=== PATIENT | male | born 1975 | race American Indian/Alaskan Native ===

== ENCOUNTER 2016-11-26 14:10 | Outpatient (CLI) | payer OTHER ==
[2016-11-26 14:47] LABS: Basophils % (Auto) 0.7 % (0.0-1.8); Eosinophils % (Auto) 3.5 % (0.0-4.3); Hematocrit 45.3 % (35.5-45.6); Hemoglobin 14.5 gm/dl (11.8-15.2); Mean Corpuscular HGB Conc 32 % (32-34); Mean Corpuscular Hemoglobin 26 pg (28-32); Mean Corpuscular Volume 82 fl (84-94); Platelet Count 229 K/mm3 (140-440); Red Blood Count 5.51 M/mm3 (3.65-5.03); Red Cell Distribution Width 14.4 % (13.2-15.2); White Blood Count 5.7 K/mm3 (4.5-11.0)
[2016-11-26 15:05] LABS: Alanine Aminotransferase 9 units/L (7-56); Albumin 4.7 g/dL (3.9-5); Albumin/Globulin Ratio 1.3 %; Alkaline Phosphatase 45 units/L (35-129); Anion Gap 19 mmol/L; BUN/Creatinine Ratio 17.77; Blood Urea Nitrogen 16 mg/dL (9-20); Calcium 9.7 mg/dL (8.4-10.2); Carbon Dioxide 27 mmol/L (22-30); Cholesterol 251 mg/dL (50-199); Glucose 94 mg/dL (75-100); HDL Cholesterol 77 mg/dL (40-59); LDL Cholesterol,Direct 164 mg/dL (50-130); Sodium 138 mmol/L (137-145); Total Protein 8.4 g/dL (6.3-8.2); Triglycerides 52 mg/dL (2-149)
[2016-11-26 15:06] LABS: Bilirubin,Direct < 0.2 mg/dL (0-0.2); Bilirubin,Indirect 0.3 mg/dL
--- NOTE | 2016-11-26 17:13 | Cat Scan Report ---
FINAL REPORT PROCEDURE: CT ABDOMEN WO/W CON TECHNIQUE: Computerized axial tomography of the abdomen was performed before and after the IV injection of iodinated nonionic contrast. HISTORY: DIARRHEA COMPARISON: No prior studies are available for comparison. FINDINGS: Unenhanced images reveal a normal sized heart. There is a 2 millimeter stone in the superior pole of the left kidney. No right renal stones are seen. Visualized portions of the ureters display no stones and no hydronephrosis is seen. Contrast-enhanced images reveal normal renal enhancement. 5 millimeter cyst is seen in the posterior aspect of the right hepatic lobe. The gallbladder and pancreas appear normal. The adrenal glands and abdominal aorta are normal in size. There is likely moderate right-sided constipation. No evidence of small bowel obstruction is seen with GI contrast reaching the right side of the colon. Jejunum is not well-distended and wall thickening cannot be excluded in the jejunum. No evidence of colitis is seen in the visualized portions of the colon. Pelvis is not included on this study. Appendix is not seen but no pericecal inflammation is seen. IMPRESSION: Nonobstructing 2 millimeter stone is seen in the left kidney. Moderate right-sided constipation is suspected. No evidence of bowel obstruction is seen. Changes of jejunitis cannot be excluded but appearance could be due to nondistention of the jejunum.
== END 2016-11-26 14:11 | disposition home or self-care (01) ==
LOC: CT 14:10
DX: N20.0 Calculus of kidney (principal); R19.7 Diarrhea, unspecified; K76.89 Other specified diseases of liver
CPT/HCPCS: 36415; 74170; 80053; 80061; 80074; 84439; 84443; 85025; Q9967

== ENCOUNTER 2020-01-05 09:12 | Emergency (ER) | payer SELFPAY ==
[2020-01-05 09:24] VITALS: BP 133/94
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
== END 2020-01-05 10:30 | disposition left against medical advice (07) ==
LOC: ED 09:12
DX: Z53.21 Procedure and treatment not carried out due to patient leaving prior to being seen by health care provider (principal)

== ENCOUNTER 2020-08-29 17:57 | Emergency (ER) | payer OTHER ==
[2020-08-29 18:05] VITALS: BP 134/101
--- NOTE | 2020-08-29 20:31 | Emergency Department Report ---
ED General Adult HPI - General Chief complaint: Rectal Pain Stated complaint: HEMORRHOIDS Source: patient Mode of arrival: Ambulatory Limitations: No Limitations - History of Present Illness Initial comments: Patient is a 45-year-old -[place] male with past medical history of chronic recurrent external hemorrhoids who presents to the ED with complaint of acute exacerbation of his chronic hemorrhoid and rectal pain for the last 2 weeks, worse in the last 2 days. Patient also complains of intermittent occasional bleeding with pain, the last time which was 3 days ago. Patient states that the pain is worse with bowel movement. Patient states that he has previously been treated for the same in the ED and was given a prescription that helped him well and would like the same medication be prescribed for him. Patient denies traumatic injury, hematochezia, nausea, vomiting, abdominal pain, fever, chills, testicular pain, dysuria, urinary frequency and urgency, low back pain, chest pain or shortness of breath. MD Complaint: Rectal pain; external hemorrhoids -: Sudden, week(s) (2) Location: buttocks Radiation: non-radiation Severity scale (0 -10): 4 Quality: aching, sharp Consistency: constant Improves with: none Worsens with: movement, other (bowel movement) Associated Symptoms: denies other symptoms. denies: confusion, chest pain, cough, diaphoresis, fever/chills, headaches, loss of appetite, malaise, nausea/vomiting, rash, seizure, shortness of breath, syncope, weakness, other Treatments Prior to Arrival: none - Related Data Previous Rx's Medication Instructions Recorded Last Taken Type Gentamicin 0.3% Ophth Soln 1 drops OP Q4H #1 bottle 04/12/15 Unknown Rx Acetaminophen/Codeine [Tylenol 1 tab PO Q6H PRN #12 tab 03/03/19 Unknown Rx /Codeine # 3 tab] Sulfamethoxazole/Trimethoprim 1 each PO BID #14 tablet 03/03/19 Unknown Rx [Bactrim DS TAB] Docusate Sodium [Colace CAP] 100 mg PO BID PRN #60 capsule 08/29/20 Unknown Rx Hydrocortisone [Anusol-Hc 2.5% TOP 1 applic RC Q12H PRN #1 tube 08/29/20 Unknown Rx CREAM] Lidocaine [Lidocaine GEL] 1 gm TP BID #1 gel..gram. 08/29/20 Unknown Rx Allergies Allergy/AdvReac Type Severity Reaction Status Date / Time No Known Allergies Allergy Verified 08/29/20 17:59 ED Review of Systems ROS: Stated complaint: HEMORRHOIDS Other details as noted in HPI Constitutional: denies: chills, fever Eyes: denies: eye pain, eye discharge, vision change ENT: denies: ear pain, throat pain Respiratory: denies: cough, shortness of breath, wheezing Cardiovascular: denies: chest pain, palpitations Endocrine: no symptoms reported Gastrointestinal: other (rectal pain due to external hemorrhoids). denies: abdominal pain, nausea, diarrhea Genitourinary: denies: urgency, dysuria Musculoskeletal: denies: back pain, joint swelling, arthralgia Skin: denies: rash, lesions Neurological: denies: headache, weakness, paresthesias Psychiatric: denies: anxiety, depression Hematological/Lymphatic: denies: easy bleeding, easy bruising ED Past Medical Hx - Past Medical History Previous Medical History?: No Additional medical history: hemorrhoids - Surgical History Past Surgical History?: No - Social History Smoking Status: Never Smoker Substance Use Type: None - Medications Home Medications: Home Medications Medication Instructions Recorded Confirmed Last Taken Type Gentamicin 0.3% Ophth Soln 1 drops OP Q4H #1 bottle 04/12/15 Unknown Rx Acetaminophen/Codeine [Tylenol 1 tab PO Q6H PRN #12 tab 03/03/19 Unknown Rx /Codeine # 3 tab] Sulfamethoxazole/Trimethoprim 1 each PO BID #14 tablet 03/03/19 Unknown Rx [Bactrim DS TAB] Docusate Sodium [Colace CAP] 100 mg PO BID PRN #60 capsule 08/29/20 Unknown Rx Hydrocortisone [Anusol-Hc 2.5% TOP 1 applic RC Q12H PRN #1 tube 08/29/20 Unknown Rx CREAM] Lidocaine [Lidocaine GEL] 1 gm TP BID #1 gel..gram. 08/29/20 Unknown Rx ED Physical Exam - General Limitations: No Limitations General appearance: alert, in no apparent distress - Head Head exam: Present: atraumatic, normocephalic, normal inspection - Eye Eye exam: Present: normal appearance, PERRL, EOMI Pupils: Present: normal accommodation - ENT ENT exam: Present: normal exam, normal orophraynx, mucous membranes moist, TM's normal bilaterally, normal external ear exam - Neck Neck exam: Present: normal inspection, full ROM - Respiratory Respiratory exam: Present: normal lung sounds bilaterally. Absent: respiratory distress, wheezes, rhonchi, stridor, chest wall tenderness, accessory muscle use, prolonged expiratory - Cardiovascular Cardiovascular Exam: Present: regular rate, normal rhythm, normal heart sounds. Absent: systolic murmur, diastolic murmur, rubs, gallop - GI/Abdominal GI/Abdominal exam: Present: soft, normal bowel sounds. Absent: tenderness, guarding, rebound, hyperactive bowel sounds, hypoactive bowel sounds - Rectal Rectal exam: Present: hemorrhoids (external tender ), tenderness, other (Male RN anesthesiologist attending Mr. Guajardo present) - Extremities Exam Extremities exam: Present: normal inspection, full ROM, normal capillary refill - Back Exam Back exam: Present: normal inspection, full ROM. Absent: tenderness, CVA tenderness (R), CVA tenderness (L), muscle spasm, paraspinal tenderness, vertebral tenderness - Neurological Exam Neurological exam: Present: alert, oriented X3, CN II-XII intact, normal gait, reflexes normal - Psychiatric Psychiatric exam: Present: normal affect, normal mood, anxious - Skin Skin exam: Present: warm, dry, intact, normal color. Absent: rash ED Course Vital Signs 08/29/20 17:59 Temperature 98.2 F Pulse Rate 85 Respiratory 18 Rate Blood Pressure 134/101 O2 Sat by Pulse 97 Oximetry ED Medical Decision Making - Medical Decision Making This is a 45-year-old -[place] male with past medical history of chronic recurrent external hemorrhoids who presents to the ED with complaint of acute exacerbation of his chronic hemorrhoid and rectal pain for the last 2 weeks, worse in the last 2 days. Patient also complains of intermittent occasional bleeding with pain, the last time which was 3 days ago. Patient states that the pain is worse with bowel movement. In the ED, patient is alert and oriented x3 and is not in any distress. Based on the history and physical exam findings, the patient was given a prescription for topical ointment for external hemorrhoids and was also encouraged to use sitz baths to improve on his symptoms. Patient was also encouraged to increase high-fiber intake and drink plenty of water in order to improve on constipation. Patient was advised return to the ED immediately if symptoms get worse, otherwise follow-up with his primary care physician in 5 to 7 days for reevaluation. - Differential Diagnosis External hemorrhoids, internal hemorrhoids, constipation, anal fissures Critical care attestation.: If time is entered above; I have spent that time in minutes in the direct care of this critically ill patient, excluding procedure time. ED Disposition Clinical Impression: External hemorrhoids, Anal or rectal pain Disposition: TO HOME OR SELFCARE Is pt being admited?: No Does the pt Need Aspirin: No Condition: Stable Instructions: Surgical Procedures for Hemorrhoids, Hemorrhoids, [id number], N onsurgical Procedures for Hemorrhoids Additional Instructions: Take medications with food, drink plenty of fluids and follow-up with your primary care physician in 5 to 7 days for reevaluation. Increase your fiber intake to improve on your symptoms. Return to the ED immediately if symptoms get worse. Prescriptions: Hydrocortisone [Anusol-Hc 2.5% TOP CREAM] 1 applic RC Q12H PRN #1 tube PRN Reason: Hemorrhoids Docusate Sodium [Colace CAP] 100 mg PO BID PRN #60 capsule PRN Reason: Constipation Lidocaine [Lidocaine GEL] 1 gm TP BID #1 gel..gram. Referrals: AGNES PANDYA MD [Referring] - 3-5 Days Time of Disposition: 20:31 Print Language: CZECH
== END 2020-08-29 21:00 | disposition home or self-care (01) ==
LOC: ED 17:57
DX: K64.4 Residual hemorrhoidal skin tags (principal); R10.2 Pelvic and perineal pain; Z79.899 Other long term (current) drug therapy
CPT/HCPCS: 99282

== ENCOUNTER 2021-07-13 01:36 | Emergency (ER) | payer OTHER ==
[2021-07-13] MEDS ORDERED: HEPARIN 10,000 UNITS/10 ML VIAL IV PRN (02:06)
[2021-07-13] MEDS ORDERED: SODIUM CHLORIDE 0.9% 1000 ML 1,000 ML IV ONE (02:06)
[2021-07-13 02:43] LABS: Hematocrit 42.3 % (35.5-45.6); Hemoglobin 13.2 gm/dl (11.8-15.2); Mean Corpuscular HGB Conc 31 % (32-34); Mean Corpuscular Volume 84 fl (84-94); Platelet Count 222 K/mm3 (140-440); Red Blood Count 5.05 M/mm3 (3.65-5.03); Red Cell Distribution Width 15.2 % (13.2-15.2)
[2021-07-13 03:08] LABS: Alanine Aminotransferase 13 units/L (7-56); Albumin 4.2 g/dL (3.9-5); BUN/Creatinine Ratio 21; Blood Urea Nitrogen 19 mg/dL (9-20); Calcium 8.7 mg/dL (8.4-10.2); Creatine Kinase MB 3.9 ng/mL (0.0-4.0); Hemolysis Index 3
[2021-07-13 03:50] LABS: Basophils % (Manual) 0 % (0.0-1.8); Total Cells Counted 100
[2021-07-13 03:56] LABS: RBC Morphology Normal
[2021-07-13 03:57] LABS: Platelet Estimate Consistent w Auto
--- NOTE | 2021-07-13 04:30 | Emergency Department Report ---
ED Palpitations HPI - General Chief Complaint: Arrhythmia/Palpitations Stated Complaint: IRREGULAR HEART BEAT WITH COUGH Time Seen by Provider: 07/13/21 01:56 Source: patient Mode of arrival: Ambulatory Limitations: No Limitations - History of Present Illness MD Complaint: rapid heart beat, palpitations -: Gradual, days(s) Context: occured during rest Associated Symptoms: denies other symptoms - Related Data Previous Rx's Medication Instructions Recorded Last Taken Type Gentamicin 0.3% Ophth Soln 1 drops OP Q4H #1 bottle 04/12/15 Unknown Rx Acetaminophen/Codeine [Tylenol 1 tab PO Q6H PRN #12 tab 03/03/19 Unknown Rx /Codeine # 3 tab] Sulfamethoxazole/Trimethoprim 1 each PO BID #14 tablet 03/03/19 Unknown Rx [Bactrim DS TAB] Docusate Sodium [Colace CAP] 100 mg PO BID PRN #60 capsule 08/29/20 Unknown Rx Hydrocortisone [Anusol-Hc 2.5% TOP 1 applic RC Q12H PRN #1 tube 08/29/20 Unknown Rx CREAM] Lidocaine [Lidocaine GEL] 1 gm TP BID #1 gel..gram. 08/29/20 Unknown Rx Allergies Allergy/AdvReac Type Severity Reaction Status Date / Time No Known Allergies Allergy Verified 08/29/20 17:59 ED Review of Systems ROS: Stated complaint: IRREGULAR HEART BEAT WITH COUGH Other details as noted in HPI Constitutional: denies: chills, fever Eyes: denies: eye pain, eye discharge, vision change ENT: denies: ear pain, throat pain Respiratory: denies: cough, shortness of breath, wheezing Cardiovascular: denies: chest pain, palpitations Endocrine: no symptoms reported Gastrointestinal: denies: abdominal pain, nausea, diarrhea Genitourinary: denies: urgency, dysuria Musculoskeletal: denies: back pain, joint swelling, arthralgia Skin: denies: rash, lesions Neurological: denies: headache, weakness, paresthesias Psychiatric: denies: anxiety, depression Hematological/Lymphatic: denies: easy bleeding, easy bruising ED Past Medical Hx - Past Medical History Previous Medical History?: No Additional medical history: hemorrhoids - Surgical History Past Surgical History?: No - Social History Smoking Status: Never Smoker Substance Use Type: None - Medications Home Medications: Home Medications Medication Instructions Recorded Confirmed Last Taken Type Gentamicin 0.3% Ophth Soln 1 drops OP Q4H #1 bottle 04/12/15 Unknown Rx Acetaminophen/Codeine [Tylenol 1 tab PO Q6H PRN #12 tab 03/03/19 Unknown Rx /Codeine # 3 tab] Sulfamethoxazole/Trimethoprim 1 each PO BID #14 tablet 03/03/19 Unknown Rx [Bactrim DS TAB] Docusate Sodium [Colace CAP] 100 mg PO BID PRN #60 capsule 08/29/20 Unknown Rx Hydrocortisone [Anusol-Hc 2.5% TOP 1 applic RC Q12H PRN #1 tube 08/29/20 Unknown Rx CREAM] Lidocaine [Lidocaine GEL] 1 gm TP BID #1 gel..gram. 08/29/20 Unknown Rx ED Physical Exam - General Limitations: No Limitations General appearance: alert, in no apparent distress - Head Head exam: Present: atraumatic, normocephalic - Eye Eye exam: Present: normal appearance - ENT ENT exam: Present: mucous membranes moist - Neck Neck exam: Present: normal inspection - Respiratory Respiratory exam: Present: normal lung sounds bilaterally. Absent: respiratory distress - Cardiovascular Cardiovascular Exam: Present: regular rate, normal rhythm. Absent: systolic murmur, diastolic murmur, rubs, gallop - GI/Abdominal GI/Abdominal exam: Present: soft, normal bowel sounds - Rectal Rectal exam: Present: deferred - Extremities Exam Extremities exam: Present: normal inspection - Back Exam Back exam: Present: normal inspection - Neurological Exam Neurological exam: Present: alert, oriented X3 - Psychiatric Psychiatric exam: Present: normal affect, normal mood - Skin Skin exam: Present: warm, dry, intact, normal color. Absent: rash ED Course - Reevaluation(s) Reevaluation #1: 07/13/21 04:29 work up negative , vss , no distress ekg normal ED Medical Decision Making - Lab Data Result diagrams: 07/13/21 02:31 07/13/21 02:31 - EKG Data -: EKG Interpreted by Me EKG shows normal: sinus rhythm Rate: normal - EKG Data When compared to previous EKG there are: no significant change Interpretation: no acute changes Critical care attestation.: If time is entered above; I have spent that time in minutes in the direct care of this critically ill patient, excluding procedure time. ED Disposition Clinical Impression: Palpitation Disposition: 01 HOME / SELF CARE / HOMELESS Is pt being admited?: No Does the pt Need Aspirin: No Condition: Stable Instructions: Palpitations, [id number] Referrals: CHAPITO GREGORY MD [Staff Physician] - 3-5 Days
--- NOTE | 2021-07-14 14:29 | Electrocardiograph Report ---
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
--- NOTE | 2021-07-17 10:01 | XRay Report ---
CHEST 2 VIEW INDICATION / CLINICAL INFORMATION: Dysrhythmia. COMPARISON: None available. FINDINGS: SUPPORT DEVICES: None. HEART / MEDIASTINUM: No significant abnormality. LUNGS / PLEURA: Mild hyperinflation of the lungs. Lungs otherwise clear. No pneumothorax. ADDITIONAL FINDINGS: No significant additional findings. IMPRESSION: 1. No active cardiopulmonary disease. Signer Name: Lenny Butler II, MD Signed: 07/13/2021 1:31 AM Workstation Name: [id number]
== END 2021-07-13 07:00 | disposition home or self-care (01) ==
LOC: ED 01:36
DX: R00.2 Palpitations (principal); Z79.899 Other long term (current) drug therapy; R79.1 Abnormal coagulation profile
CPT/HCPCS: 36415; 71045; 80053; 82550; 82553; 84443; 84484; 85007; 85025; 85610; 93005; 93010; 96360; 99284; J7030; 71046; Q0162

== ENCOUNTER 2021-08-20 16:34 | Emergency (ER) | payer OTHER ==
[2021-08-20 16:50] VITALS: BP 140/82
--- NOTE | 2021-08-20 20:44 | Emergency Department Report ---
ED Dizziness HPI - General Chief Complaint: Dizziness Stated Complaint: DIZZY Source: patient Mode of arrival: Ambulatory Limitations: No Limitations - History of Present Illness Initial Comments: 46-year-old male presents to the ED complaining of dizziness and earaches x2- week. Patient is alert and oriented x3. Patient states that symptoms are worse when he is bending and coming up. Patient has taken any [id number] medication. Patient states that he feels like he has fluid in the back of his ear. Patient denies any headache nausea vomiting or diarrhea. No acute distress noted. No ill appearance noted. MD Complaint: dizziness History of Same: No History of Trauma: No Worsens With: nothing Associated Symptoms: denies other symptoms - Related Data Previous Rx's Medication Instructions Recorded Last Taken Type Gentamicin 0.3% Ophth Soln 1 drops OP Q4H #1 bottle 04/12/15 Unknown Rx Acetaminophen/Codeine [Tylenol 1 tab PO Q6H PRN #12 tab 03/03/19 Unknown Rx /Codeine # 3 tab] Sulfamethoxazole/Trimethoprim 1 each PO BID #14 tablet 03/03/19 Unknown Rx [Bactrim DS TAB] Docusate Sodium [Colace CAP] 100 mg PO BID PRN #60 capsule 08/29/20 Unknown Rx Hydrocortisone [Anusol-Hc 2.5% TOP 1 applic RC Q12H PRN #1 tube 08/29/20 Unknown Rx CREAM] Lidocaine [Lidocaine GEL] 1 gm TP BID #1 gel..gram. 08/29/20 Unknown Rx Amoxicillin/Potassium Clav 1 each PO BID 10 Days #20 tab 08/20/21 Unknown Rx [Augmentin 875-125 Tablet] Cetirizine HCl/Pseudoephedrine 1 each PO BID 15 Days #30 tab 08/20/21 Unknown Rx [Zyrtec-D Tablet] predniSONE [Deltasone] 50 mg PO QDAY 3 Days #3 tab 08/20/21 Unknown Rx Allergies Allergy/AdvReac Type Severity Reaction Status Date / Time No Known Allergies Allergy Verified 08/29/20 17:59 ED Review of Systems ROS: Stated complaint: DIZZY Other details as noted in HPI Constitutional: denies: chills, fever Eyes: denies: eye pain, eye discharge, vision change ENT: denies: ear pain, throat pain Respiratory: denies: cough, shortness of breath, wheezing Cardiovascular: denies: chest pain, palpitations Endocrine: no symptoms reported Gastrointestinal: denies: abdominal pain, nausea, diarrhea Genitourinary: denies: urgency, dysuria Musculoskeletal: denies: back pain, joint swelling, arthralgia Skin: denies: rash, lesions Neurological: denies: headache, weakness, paresthesias Psychiatric: denies: anxiety, depression Hematological/Lymphatic: denies: easy bleeding, easy bruising ED Past Medical Hx - Past Medical History Additional medical history: hemorrhoids - Social History Smoking Status: Never Smoker Substance Use Type: None - Medications Home Medications: Home Medications Medication Instructions Recorded Confirmed Last Taken Type Gentamicin 0.3% Ophth Soln 1 drops OP Q4H #1 bottle 04/12/15 Unknown Rx Acetaminophen/Codeine [Tylenol 1 tab PO Q6H PRN #12 tab 03/03/19 Unknown Rx /Codeine # 3 tab] Sulfamethoxazole/Trimethoprim 1 each PO BID #14 tablet 03/03/19 Unknown Rx [Bactrim DS TAB] Docusate Sodium [Colace CAP] 100 mg PO BID PRN #60 capsule 08/29/20 Unknown Rx Hydrocortisone [Anusol-Hc 2.5% TOP 1 applic RC Q12H PRN #1 tube 08/29/20 Unknown Rx CREAM] Lidocaine [Lidocaine GEL] 1 gm TP BID #1 gel..gram. 08/29/20 Unknown Rx Amoxicillin/Potassium Clav 1 each PO BID 10 Days #20 tab 08/20/21 Unknown Rx [Augmentin 875-125 Tablet] Cetirizine HCl/Pseudoephedrine 1 each PO BID 15 Days #30 tab 08/20/21 Unknown Rx [Zyrtec-D Tablet] predniSONE [Deltasone] 50 mg PO QDAY 3 Days #3 tab 08/20/21 Unknown Rx ED Physical Exam - General Limitations: No Limitations ED Course Vital Signs 08/20/21 16:47 Temperature 97.9 F Pulse Rate 98 H Respiratory 16 Rate Blood Pressure 140/82 [Left] O2 Sat by Pulse 99 Oximetry ED Medical Decision Making - Medical Decision Making 46-year-old male presents to the ED complaining of dizziness and earaches x2- week. Patient is alert and oriented x3. Patient states that symptoms are worse when he is bending and coming up. Patient has taken any [id number] medication. Patient states that he feels like he has fluid in the back of his ear. Patient denies any headache nausea vomiting or diarrhea. No acute distress noted. No ill appearance noted. Physical examination patient has tenderness to the front of her cavities upon palpation. Post Nasal drip noted. Mild ear effusion noted to the right ear. Rechecked the patient is resting quietly quietly and comfortable and feeling better. I discussed the results of diagnostic study, my clinical impression and the plan for further treatment with the patient. Patient agrees with plan and discharge at this present time. All question addressed. I have given the patient instruction regarding a diagnosis ,expectation ,follow- up and return precaution. I explained to the patient that emergent condition may arise and to return to the ED for new worsen and any new persisting condition. I have explained the importance of following up with the primary care physician or referral physician listed below has instructed. The patient verbalized understanding of discharge instruction. Critical care attestation.: If time is entered above; I have spent that time in minutes in the direct care of this critically ill patient, excluding procedure time. ED Disposition Clinical Impression: Acute frontal sinusitis Qualifiers: Recurrence: non-recurrent Qualified Code(s): J01.10 - Acute frontal sinusitis, unspecified Disposition: 01 HOME / SELF CARE / HOMELESS Is pt being admited?: No Does the pt Need Aspirin: No Condition: Stable Instructions: Sinusitis, Adult, [id number] Additional Instructions: Take medication has needed Return to the ED for any worsening symptom Prescriptions: Amoxicillin/Potassium Clav [Augmentin 875-125 Tablet] 1 each PO BID 10 Days #20 tab predniSONE [Deltasone] 50 mg PO QDAY 3 Days #3 tab Cetirizine HCl/Pseudoephedrine [Zyrtec-D Tablet] 1 each PO BID 15 Days #30 tab Referrals: BELA GARCIA MD [Primary Care Provider] - 3-5 Days Forms: Work/School Release Form(ED)
== END 2021-08-20 22:53 | disposition home or self-care (01) ==
LOC: ED 16:34
DX: J01.10 Acute frontal sinusitis, unspecified (principal)
CPT/HCPCS: 99282

== ENCOUNTER 2021-12-11 08:48 | Emergency (ER) | payer OTHER ==
[2021-12-11] MEDS ORDERED: FAMOTIDINE 20 MG TAB PO ONE (09:41)
[2021-12-11] MEDS ORDERED: ALUM-MAG HYDROXIDE-SIMETHICONE 200-200-20MG/5ML ORAL LIQD 30 ML PO ONE (09:41)
[2021-12-11] MEDS ORDERED: LIDOCAINE VISCOUS 2% 15 ML ORAL LIQD PO ONE (09:41)
[2021-12-11] MEDS ORDERED: ONDANSETRON 4 MG ODT TAB PO ONE (09:47)
[2021-12-11] MEDS ORDERED: SODIUM CHLORIDE 0.9% 1000 ML 1,000 ML IV ONE (10:03)
[2021-12-11] MEDS ORDERED: ONDANSETRON 4 MG/2 ML INJ IV ONE ×2 (10:03→16:37)
[2021-12-11] MEDS ORDERED: diphenhydrAMINE 50 MG/ML VIAL IV ONE (10:37)
[2021-12-11] MEDS ORDERED: MORPHINE 4 MG/1 ML INJ IV ONE (10:37)
[2021-12-11] MEDS ORDERED: METOCLOPRAMIDE 10 MG/2 ML INJ IV ONE (10:37)
--- NOTE | 2021-12-11 10:44 | Emergency Department Report ---
ED Abdominal Pain HPI - General Chief Complaint: Abdominal Pain Stated Complaint: STOMACH AND BACK PAIN/CAN'T BREATHE Time Seen by Provider: 12/11/21 09:40 Source: patient Mode of arrival: Ambulatory Limitations: No Limitations - History of Present Illness Initial Comments: Patient is a 46-year-old -[place] male with no past medical history who presents to the ED with complaint of acute onset persistent diffuse lower abdominal pain that radiates from the lower abdomen to the left flank with intractable nausea and vomiting for the last 6 hours. Patient states that he has not been able to keep anything down because of persistent intractable nausea and vomiting and worsening diffuse lower abdominal pain. Patient states that no one else at home is had similar symptoms. Patient denies fever, chills, dizziness, syncope, hematochezia, hematemesis, diarrhea, dysuria, urinary frequency and urgency, testicular pain, hematuria, headache, sore throat, cough, chest pain and shortness of breath. MD Complaint: abdominal pain (Diffuse lower abdominal pain), other (Intractable nausea and vomiting) -: hour(s) (6) Location: LLQ, RLQ, suprapubic, L flank Radiation: LLQ, RLQ, suprapubic, L flank Migration to: no migration Severity: severe Severity scale (0 -10): 10 Quality: cramping, sharp Consistency: constant Improves With: nothing Worsens With: nothing Associated Symptoms: denies other symptoms, nausea, vomiting. denies: diarrhea, chills, constipation, dysuria, hematemesis, hematochezia, melena, hematuria, anorexia - Related Data Previous Rx's Medication Instructions Recorded Last Taken Type Gentamicin 0.3% Ophth Soln 1 drops OP Q4H #1 bottle 04/12/15 Unknown Rx Acetaminophen/Codeine [Tylenol 1 tab PO Q6H PRN #12 tab 03/03/19 Unknown Rx /Codeine # 3 tab] Sulfamethoxazole/Trimethoprim 1 each PO BID #14 tablet 03/03/19 Unknown Rx [Bactrim DS TAB] Docusate Sodium [Colace CAP] 100 mg PO BID PRN #60 capsule 08/29/20 Unknown Rx Hydrocortisone [Anusol-Hc 2.5% TOP 1 applic RC Q12H PRN #1 tube 08/29/20 Unknown Rx CREAM] Lidocaine [Lidocaine GEL] 1 gm TP BID #1 gel..gram. 08/29/20 Unknown Rx Amoxicillin/Potassium Clav 1 each PO BID 10 Days #20 tab 08/20/21 Unknown Rx [Augmentin 875-125 Tablet] Cetirizine HCl/Pseudoephedrine 1 each PO BID 15 Days #30 tab 08/20/21 Unknown Rx [Zyrtec-D Tablet] predniSONE [Deltasone] 50 mg PO QDAY 3 Days #3 tab 08/20/21 Unknown Rx Ciprofloxacin HCl 500 mg PO Q12H #20 tab 12/11/21 Unknown Rx Ketorolac [Toradol] 10 mg PO Q8H PRN #20 tab 12/11/21 Unknown Rx Ondansetron [Zofran Odt] 4 mg PO Q8HR PRN #20 tab.rapdis 12/11/21 Unknown Rx Tamsulosin [Flomax] 0.4 mg PO QDAY #10 cap 12/11/21 Unknown Rx traMADoL [Ultram] 50 mg PO Q6HR PRN #10 tablet 12/11/21 Unknown Rx Allergies Allergy/AdvReac Type Severity Reaction Status Date / Time No Known Allergies Allergy Verified 08/29/20 17:59 ED Review of Systems ROS: Stated complaint: STOMACH AND BACK PAIN/CAN'T BREATHE Other details as noted in HPI Constitutional: denies: chills, fever Eyes: denies: eye pain, eye discharge, vision change ENT: denies: ear pain, throat pain Respiratory: denies: cough, shortness of breath, wheezing Cardiovascular: denies: chest pain, palpitations Endocrine: no symptoms reported Gastrointestinal: abdominal pain (Diffuse lower abdominal pain), nausea, vomiting. denies: diarrhea Genitourinary: denies: urgency, dysuria Musculoskeletal: denies: back pain, joint swelling, arthralgia Skin: denies: rash, lesions Neurological: denies: headache, weakness, paresthesias Psychiatric: denies: anxiety, depression Hematological/Lymphatic: denies: easy bleeding, easy bruising ED Past Medical Hx - Past Medical History Previous Medical History?: No Additional medical history: hemorrhoids - Social History Smoking Status: Never Smoker - Medications Home Medications: Home Medications Medication Instructions Recorded Confirmed Last Taken Type Gentamicin 0.3% Ophth Soln 1 drops OP Q4H #1 bottle 04/12/15 Unknown Rx Acetaminophen/Codeine [Tylenol 1 tab PO Q6H PRN #12 tab 03/03/19 Unknown Rx /Codeine # 3 tab] Sulfamethoxazole/Trimethoprim 1 each PO BID #14 tablet 03/03/19 Unknown Rx [Bactrim DS TAB] Docusate Sodium [Colace CAP] 100 mg PO BID PRN #60 capsule 08/29/20 Unknown Rx Hydrocortisone [Anusol-Hc 2.5% TOP 1 applic RC Q12H PRN #1 tube 08/29/20 Unknown Rx CREAM] Lidocaine [Lidocaine GEL] 1 gm TP BID #1 gel..gram. 08/29/20 Unknown Rx Amoxicillin/Potassium Clav 1 each PO BID 10 Days #20 tab 08/20/21 Unknown Rx [Augmentin 875-125 Tablet] Cetirizine HCl/Pseudoephedrine 1 each PO BID 15 Days #30 tab 08/20/21 Unknown Rx [Zyrtec-D Tablet] predniSONE [Deltasone] 50 mg PO QDAY 3 Days #3 tab 08/20/21 Unknown Rx Ciprofloxacin HCl 500 mg PO Q12H #20 tab 12/11/21 Unknown Rx Ketorolac [Toradol] 10 mg PO Q8H PRN #20 tab 12/11/21 Unknown Rx Ondansetron [Zofran Odt] 4 mg PO Q8HR PRN #20 tab.rapdis 12/11/21 Unknown Rx Tamsulosin [Flomax] 0.4 mg PO QDAY #10 cap 12/11/21 Unknown Rx traMADoL [Ultram] 50 mg PO Q6HR PRN #10 tablet 12/11/21 Unknown Rx ED Physical Exam - General Limitations: No Limitations General appearance: alert, in no apparent distress - Head Head exam: Present: atraumatic, normocephalic, normal inspection - Eye Eye exam: Present: normal appearance, PERRL, EOMI Pupils: Present: normal accommodation - ENT ENT exam: Present: normal exam, normal orophraynx, mucous membranes moist, TM's normal bilaterally, normal external ear exam - Neck Neck exam: Present: normal inspection, full ROM - Respiratory Respiratory exam: Present: normal lung sounds bilaterally. Absent: respiratory distress, wheezes, rales, rhonchi, chest wall tenderness, accessory muscle use, decreased breath sounds, prolonged expiratory - Cardiovascular Cardiovascular Exam: Present: regular rate, normal rhythm, normal heart sounds. Absent: systolic murmur, diastolic murmur, rubs, gallop - GI/Abdominal GI/Abdominal exam: Present: soft, tenderness (Palpable diffuse lower abdominal tenderness, with guarding), guarding, normal bowel sounds. Absent: rebound, hyperactive bowel sounds, hypoactive bowel sounds, mass - Extremities Exam Extremities exam: Present: normal inspection, full ROM, normal capillary refill - Back Exam Back exam: Present: normal inspection, full ROM. Absent: tenderness, CVA tenderness (R), CVA tenderness (L), muscle spasm, paraspinal tenderness - Neurological Exam Neurological exam: Present: alert, oriented X3, CN II-XII intact, normal gait, reflexes normal - Psychiatric Psychiatric exam: Present: normal affect, normal mood - Skin Skin exam: Present: warm, dry, intact, normal color. Absent: rash ED Course Vital Signs 12/11/21 12/11/21 09:42 13:33 Temperature 97.8 F 98.0 F Pulse Rate 90 76 Respiratory 20 18 Rate Blood Pressure 152/92 97/53 [Left] O2 Sat by Pulse 100 97 Oximetry ED Medical Decision Making - Lab Data Result diagrams: 12/11/21 09:52 12/11/21 09:52 - Radiology Data Radiology results: report reviewed, [place] [address] Cat Scan Report Signed Patient: FORREST DAILEY MR#: [id number] : 1975 Acct:[id number] Age/Sex: 46 / M ADM Date: 12/11/21 Loc: ED Attending Dr: Ordering Physician: RIA OLIVER Date of Service: 12/11/21 Procedure(s): CT abdomen pelvis w con Accession Number(s): [id number] cc: RIA OLIVER CT ABDOMEN AND PELVIS WITH CONTRAST HISTORY: DIFFUSE LOWER ABDOMINAL PAIN - R/O APPENDICITIS COMPARISON: None. TECHNIQUE: Axial CT images were obtained through the abdomen and pelvis after 100 cc of Omnipaque 300 IV contrast. Sagittal and coronal reformatted images. All CT scans at this location are performed using CT dose reduction for ALARA by means of automated exposure control. FINDINGS: CT ABDOMEN: Lung Bases: Mild bibasilar atelectatic changes. Liver: No significant abnormality. Biliary: No significant abnormality. Spleen: No significant abnormality. Unenlarged. Pancreas: No significant abnormality. Adrenals: No significant abnormality. Kidneys: The right kidney and collecting system are unremarkable. There is mild left perinephric fluid/stranding. No focal left renal lesion. No obvious renal stones. The left ureter is slightly prominent compared to the right side but no obstructing lesion is seen. Lymphatics: No lymphadenopathy. Vasculature: No significant abnormality. Bowel/Peritoneum: No significant abnormality. No free air. No free fluid. Normal appendix. CT PELVIS: : A 6 mm stone is identified in the bladder. The bladder is otherwise unremarkable. Osseous Structures: No significant abnormality. Additional Findings: None IMPRESSION: Findings consistent with a recently passed 6 mm left renal stone. See above. No evidence for appendicitis. Signer Name: Wayne Guadalupe Jr, MD Signed: 12/11/2021 2:49 PM Workstation Name: [id number] Transcribed By: TTR Dictated By: WAYNE GUADALUPE JR, MD Electronically Authenticated By: WAYNE GUADALUPE JR, MD Signed Date/Time: 12/11/211448 DD/ 45 TD/TT: Print - Medical Decision Making This is a 46-year-old -[place] male with no past medical history who presents to the ED with complaint of acute onset persistent diffuse lower abdominal pain that radiates from the lower abdomen to the left flank with intractable nausea and vomiting for the last 6 hours. Patient states that he has not been able to keep anything down because of persistent intractable nausea and vomiting and worsening diffuse lower abdominal pain. Patient states that no one else at home is had similar symptoms. In the ED, patient is alert and oriented x3 and is not in any distress but appears to be in significant pain. Labs are drawn, abdomen pelvis CT scan with IV contrast ordered and patient was treated for pain, also given antiemetics and normal saline 1 L IV bolus x1. The abdomen pelvis CT scan with IV contrast showed findings consistent with a recently passed 6 mm left renal stone, with a 6 mm stone still present in the bladder. All lab test results were reviewed and are all nonactionable except for urinalysis that showed significant blood in urine consistent with the findings of kidney stones in the abdomen pelvis CT scan with contrast. On reevaluation, patient's pain is well controlled medication. Nausea and vomiting also well controlled. Patient passed oral fluid challenge in the ED. Patient was therefore discharged home on pain medications and antiemetics and was advised to follow-up with his urologist or primary care physician in 5 to 7 days for reevaluation. Patient was advised to return to the ED immediately if symptoms get worse. - Differential Diagnosis Appendicitis; diverticulitis; colitis; kidney stone; UTI; Critical care attestation.: If time is entered above; I have spent that time in minutes in the direct care of this critically ill patient, excluding procedure time. ED Disposition Clinical Impression: Intractable lower abdominal pain, Nausea and vomiting in adult patient, Kidney stone on left side Disposition: HOME / SELF CARE / HOMELESS Is pt being admited?: No Does the pt Need Aspirin: No Condition: Stable Instructions: Renal Colic, [id number], Kidney Stones, [id number], Abdominal Pain, Adult, Mope-mx-Ngvi, Nausea and Vomiting, Adult, [id number] Additional Instructions: All lab test results were reviewed and are all nonactionable except for some blood in urine. The abdomen pelvis CT scan with IV contrast showed findings consistent with a recently passed 6 mm left renal stone, which is still identified in the urinary bladder. Therefore take medication with food, drink plenty of fluids, follow-up with the urologist Dr. Recio in 3 to 5 days for reevaluation. Consider following up with your primary care physician in 7 to 10 days for reevaluation. Return to the ED immediately if symptoms get worse. Prescriptions: Ciprofloxacin HCl 500 mg PO Q12H #20 tab Tamsulosin [Flomax] 0.4 mg PO QDAY #10 cap Ketorolac [Toradol] 10 mg PO Q8H PRN #20 tab PRN Reason: Pain traMADoL [Ultram] 50 mg PO Q6HR PRN #10 tablet PRN Reason: Pain Ondansetron [Zofran Odt] 4 mg PO Q8HR PRN #20 tab.rapdis PRN Reason: Nausea Referrals: SAMANTHA RECIO MD [Staff Physician] - 3-[address] [facility] [Provider Group] - 7-10 days Forms: Work/School Release Form(ED) Time of Disposition: 16:39 Print Language: CHINESE
[2021-12-11 10:45] LABS: Basophils % (Auto) 0.3 % (0.0-1.8); Eosinophils % (Auto) 0.7 % (0.0-4.3); Hematocrit 44.1 % (35.5-45.6); Hemoglobin 14.3 gm/dl (11.8-15.2); Lymphocytes # (Auto) 1.6 K/mm3 (1.2-5.4); Lymphocytes % (Auto) 21.1 % (13.4-35.0); Mean Corpuscular HGB Conc 33 % (32-34); Mean Corpuscular Volume 84 fl (84-94); Monocytes # (Auto) 0.6 K/mm3 (0.0-0.8); Monocytes % (Auto) 8.2 % (0.0-7.3); Platelet Count 220 K/mm3 (140-440); Red Blood Count 5.28 M/mm3 (3.65-5.03); Red Cell Distribution Width 14.8 % (13.2-15.2)
[2021-12-11 10:54] LABS: Alanine Aminotransferase 11 units/L (7-56); Albumin 4.6 g/dL (3.9-5); BUN/Creatinine Ratio 12; Blood Urea Nitrogen 13 mg/dL (9-20); Calcium 9.3 mg/dL (8.4-10.2); Hemolysis Index 2
[2021-12-11 11:03] LABS: Bilirubin,Direct < 0.2 mg/dL (0-0.2)
--- NOTE | 2021-12-11 11:15 | XRay Report ---
ABDOMEN SERIES WITH ONE VIEW CHEST INDICATION / CLINICAL INFORMATION: cp. COMPARISON: None available. FINDINGS: TUBES / LINES: None. BOWEL GAS PATTERN: No significant abnormality. FREE AIR / EXTRALUMINAL GAS: None seen. ADDITIONAL FINDINGS: No significant additional findings. LUNGS: Visualized lungs show no significant abnormality. IMPRESSION: 1. No significant abnormality. Signer Name: Ion Travis MD Signed: 12/11/2021 11:10 AM Workstation Name: [id number]
--- NOTE | 2021-12-11 14:54 | Cat Scan Report ---
CT ABDOMEN AND PELVIS WITH CONTRAST HISTORY: DIFFUSE LOWER ABDOMINAL PAIN - R/O APPENDICITIS COMPARISON: None. TECHNIQUE: Axial CT images were obtained through the abdomen and pelvis after 100 cc of Omnipaque 300 IV contrast. Sagittal and coronal reformatted images. All CT scans at this location are performed us ing CT dose reduction for JOSE R by means of automated exposure control. FINDINGS: CT ABDOMEN: Lung Bases: Mild bibasilar atelectatic changes. Liver: No significant abnormality. Biliary: No significant abnormality. Spleen: No significant abnormality. Unenlarged. Pancreas: No significant abnormality. Adrenals: No significant abnormality. Kidneys: The right kidney and collecting system are unremarkable. There is mild left perinephric flui d/stranding. No focal left renal lesion. No obvious renal stones. The left ureter is slightly promine nt compared to the right side but no obstructing lesion is seen. Lymphatics: No lymphadenopathy. Vasculature: No significant abnormality. Bowel/Peritoneum: No significant abnormality. No free air. No free fluid. Normal appendix. CT PELVIS: : A 6 mm stone is identified in the bladder. The bladder is otherwise unremarkable. Osseous Structures: No significant abnormality. Additional Findings: None IMPRESSION: Findings consistent with a recently passed 6 mm left renal stone. See above. No evidence for appendicitis. Signer Name: Wayne Guadalupe Jr, MD Signed: 12/11/2021 2:49 PM Workstation Name: [id number]
[2021-12-11 14:59] LABS: Bilirubin,Urine Negative (Negative); Blood,Urine Large (Negative); Color,Urine Straw (Yellow)
[2021-12-11 15:00] LABS: Urobilinogen,Urine < 2.0 mg/dL (<2.0)
[2021-12-11 15:32] LABS: Mucus,Urine 1+ /HPF
[2021-12-11 15:33] LABS: RBC,Urine > 182.0 /HPF (0.0-6.0)
[2021-12-11] MEDS ORDERED: KETOROLAC 30 MG/1 ML INJ IV ONE (16:37)
[2021-12-11] MEDS ORDERED: TAMSULOSIN 0.4 MG CAP PO ONE (16:37)
[2021-12-11 17:13] VITALS: BP 119/66
--- NOTE | 2021-12-13 17:16 | Electrocardiograph Report ---
[facility] Test Date: 2021-12-11 Test Time: 11:43:09 Pat Name: FORREST DAILEY Department: Room: Gender: M Resident Care Provider: LISA : 1975 Requested By: SHERINE GARCIA Order Number: [id number] Reading MD: Aime Agarwal Measurements Intervals [place] Rate: 82 P: 70 AL: 176 QRS: 41 QRSD: 93 T: 56 QT: 372 QTc: 435 Interpretive Statements Sinus rhythm Compared to ECG 07/13/2021 04:22:06 No significant change Electronically Signed On 12-13-2021 17:16:15 EDT by Aime Agarwal
== END 2021-12-11 17:13 | disposition home or self-care (01) ==
LOC: ED 08:48
DX: N20.0 Calculus of kidney (principal); Z79.899 Other long term (current) drug therapy
CPT/HCPCS: 36415; 74022; 74177; 80048; 80076; 81001; 83690; 85025; 93005; 96361; 96374; 96375; 96376; 99284; J1200; J1885; J2270; J2405; J2765; J7030; Q9967; J3490; Q0162